=== PATIENT | male | born 1975 | race Caucasian/White ===

== ENCOUNTER 2022-06-13 16:34 | Outpatient (CLI) | payer OTHER ==
--- NOTE | 2022-06-14 09:59 | MRI Report ---
PROCEDURE: CERVICAL SPINE WO INDICATIONS: CERVICALGIA TECHNIQUE: Noncontrast sagittal T1 spin echo and T2 fast spin echo, sagittal STIR, foraminal oblique sagittal T2 fast spin echo, and axial gradient echo or T2 fast spin echo through the cervical spine. COMPARISON: None. FINDINGS: Image quality: Excellent. Alignment and Curvature: There is normal bony alignment. Bone Marrow: Marrow demonstrates normal overall signal. Spinal Cord: Visualized spinal cord has normal size and signal. No cerebellar tonsillar herniation. Paraspinous Soft Tissues: No paravertebral masses. Prevertebral soft tissues are normal in thicknes s. C2-C3: No significant neuroforaminal or spinal canal stenosis. C3-C4: Bilateral uncovertebral osteoarthrosis more pronounced on the left. Broad-based posterior di sc osteophyte complex. No significant spinal canal stenosis. Mild left neuroforaminal stenosis. C4-C5: Bilateral uncovertebral osteoarthrosis. Mild bilateral facet arthropathy. Shallow posterior d isc osteophyte complex. Effacement of the anterior thecal sac without significant spinal canal stenos is. Minimal left neuroforaminal stenosis. C5-C6: Bilateral facet arthropathy. Mild bilateral uncovertebral osteoarthrosis. Broad-based posteri or disc osteophyte complex with effacement of the anterior thecal sac. No spinal canal stenosis. Mild bilateral neuroforaminal stenosis. Degenerative endplate changes. C6-C7: Bilateral uncovertebral osteoarthrosis and mild bilateral facet arthropathy. Shallow broad-ba sed posterior disc osteophyte complex. No significant neuroforaminal or spinal canal stenosis. C7-T1: No significant neural foraminal or spinal canal stenosis. IMPRESSION: Mild multilevel multifactorial cervical spondylosis as detailed above by vertebral body level. Findin gs are most pronounced from C3-4 through C5-6 with the most severe level noted at C5-6. Reviewed by: Jered Pritchard MD on 06/14/2022 9:58 AM PDT Approved by: Jered Pritchard MD on 06/14/2022 9:58 AM PDT Station ID: [id number]
== END 2022-06-13 16:35 | disposition home or self-care (01) ==
LOC: DI 16:34
PROVIDERS: ATTEND General Practice
DX: M47.812 Spondylosis without myelopathy or radiculopathy, cervical region (principal)